=== PATIENT | female | born 1995 | race Caucasian/White ===

== ENCOUNTER 2022-09-20 14:02 | Outpatient (CLI) | payer SELFPAY ==
[2022-09-20 14:56] LABS: HCG Quantitative 88.44 mIU/mL
== END 2022-09-20 14:03 | disposition home or self-care (01) ==
LOC: LAB 14:07
PROVIDERS: Visit Provider Obstetrics & Gynecology
DX: O20.0 Threatened abortion (principal); Z3A.00 Weeks of gestation of pregnancy not specified
CPT/HCPCS: 84702

== ENCOUNTER 2023-01-28 15:31 | Outpatient (CLI) | payer SELFPAY ==
--- NOTE | 2023-01-28 | US_ITS ---
WS: [id number] DIAGNOSTIC BILATERAL DIGITAL BREAST TOMOSYNTHESIS MAMMOGRAPHY WITH CAD LEFT breast ultrasound, limited HISTORY: LT BR MASS results called to Anthony at [facility] [place] office 01/29/23 @ 1013 DIAGNOSTIC BILATERAL DIGITAL BREAST TOMOSYNTHESIS MAMMOGRAPHY WITH CAD LEFT breast ultrasound, limited HISTORY: LT BR MASS COMPARISON: None available. TECHNIQUE: Bilateral craniocaudad, mediolateral oblique, and mediolateral views are submitted with tomosynthesis and SM. Spot compression views LEFT MLO and CC. Computer aided detection utilized. Breast composition: There are scattered areas of fibroglandular density. Marker is placed in the upper LEFT breast near the axillary tail. Marker corresponds with several lymph nodes. There is also a very poorly defined slightly lobulated mass measuring approximately 7 mm which is slightly inferior to the marker. Otherwise no abnormality within either breast. LEFT breast ultrasound, limited. In the region of the palpable abnormality is a hypoechoic mass with mild increased vascularity. This is an irregular shaped mass measuring 1.3 x 1.7 x 0.9 cm. Does not have a typical appearance of a lymph node. This will need to be further evaluated by biopsy. IMPRESSION: MM/[place] [id number] BI-RADS: 4-Suspicious Finding-Biopsy Should Be Considered FOLLOW UP: Biopsy Recommended Notified Jonelle Rousseau at 01/29/2023 9:59 AM. RASHEED
--- NOTE | 2023-01-28 15:58 | MM_ITS ---
WS: [id number] DIAGNOSTIC BILATERAL DIGITAL BREAST TOMOSYNTHESIS MAMMOGRAPHY WITH CAD LEFT breast ultrasound, limited HISTORY: LT BR MASS COMPARISON: None available. TECHNIQUE: Bilateral craniocaudad, mediolateral oblique, and mediolateral views are submitted with to boyd and AMEENA. Spot compression views LEFT MLO and CC. Computer aided detection utilized. Breast composition: There are scattered areas of fibroglandular density. Marker is placed in the uppe r LEFT breast near the axillary tail. Marker corresponds with several lymph nodes. There is also a ve ry poorly defined slightly lobulated mass measuring approximately 7 mm which is slightly inferior to the marker. Otherwise no abnormality within either breast. LEFT breast ultrasound, limited. In the region of the palpable abnormality is a hypoechoic mass with mild increased vascularity. This is an irregular shaped mass measuring 1.3 x 1.7 x 0.9 cm. Does not have a typical appearance of a lym ph node. This will need to be further evaluated by biopsy. IMPRESSION: MM/[place] [id number] BI-RADS: 4-Suspicious Finding-Biopsy Should Be Considered FOLLOW UP: Biopsy Recommended Notified Jonelle Rousseau at 01/29/2023 9:59 AM.
== END 2023-01-28 15:32 | disposition home or self-care (01) ==
PROVIDERS: PCP Nurse Practitioner Family; Visit Provider Nurse Practitioner Family
DX: N63.32 Unspecified lump in axillary tail of the left breast (principal)
CPT/HCPCS: 76642; 77062; G0279

== ENCOUNTER 2023-02-12 13:13 | Outpatient (CLI) | payer SELFPAY ==
--- NOTE | 2023-02-12 14:03 | US_ITS ---
WS: [id number] ULTRASOUND-GUIDED LEFT BREAST BIOPSY CLINICAL INFORMATION: BREAST LUMP ON LEFT SIDE AT 12 OCLOCK POSITION/MASS COMPARISON: 01/28/2023 FINDINGS: The procedure including risks, benefits, and complications were discussed with the patient who agreed to proceed. Using sterile technique patient was prepped and draped in the usual sterile fashion. Aft er 1% lidocaine utilizing real-time ultrasound guidance 5 14-gauge cores were obtained of the LEFT br east lesion at the 11 o'clock position 9 cm from the nipple. Subsequently a titanium clip was placed in the biopsy cavity. No immediate complications. PATHOLOGY DEMONSTRATES Left breast, mass, 11:00 position, 9.0 cm from nipple, needle core biopsies: 1. Benign neoplasm, favor Phyllodes tumor. 2. See comment. PATHOLOGY COMMENT Serial sections are performed to reveal predominantly a spindle cell proliferation. There is no nucle ar atypia or mitotic activity, however. The differential diagnosis includes fibroadenoma versus benign Phyllodes tumor. Although there is no cytomorphological evidence of malignancy, it is recommended that the mass be completely excised with uninvolved margins. An attempt to differentiate between fibroadenoma and Phyllodes tumor using immunohistochemistry was non-contributory (all immunohistochemical stains utilized were negative with appropriate controls: DOG-1, C-kit, Ki67, and CK-Cocktail). IMPRESSION: 1. Uncomplicated ultrasound-guided LEFT breast biopsy. 2. The pathology demonstrates benign neoplasm, favor Phyllodes tumor. 3. Recommend BREAST SURGERY consultation for total resection. See pathology comment above. US/[place] [id number] BI-RADS: 2-Benign FOLLOW UP: Surgical Biopsy Recommended
== END 2023-02-12 13:14 | disposition home or self-care (01) ==
PROVIDERS: PCP Nurse Practitioner Family; Visit Provider Nurse Practitioner Family
DX: D24.2 Benign neoplasm of left breast (principal); N63.32 Unspecified lump in axillary tail of the left breast
CPT/HCPCS: 19083; 88305; 88342

== ENCOUNTER 2024-09-19 18:52 | Emergency (ER) | payer SELFPAY ==
[2024-09-19 19:13] VITALS: BP 166/97; PULSE 83; RESP 16; TEMP 36.7; O2SAT 97; BMI 44.6
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
[2024-09-19 21:10] VITALS: BP 187/107; PULSE 84; O2SAT 97
[2024-09-19 22:00] VITALS: BP 169/99; PULSE 88; O2SAT 99
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
[2024-09-19 22:52] VITALS: BP 156/96; PULSE 82; O2SAT 94
== END 2024-09-19 22:54 | disposition home or self-care (01) ==
PROVIDERS: Emergency Provider General Practice; PCP Nurse Practitioner Family
DX: M79.605 Pain in left leg (principal); M79.604 Pain in right leg; Z87.891 Personal history of nicotine dependence
CPT/HCPCS: 73562; 73590; 99284